=== PATIENT | male | born 1990 | race African-American/Black ===

== ENCOUNTER 2018-06-02 10:07 | Emergency (ER) | payer OTHER ==
[~2018-06-02] VITALS: Ht 188 cm; Wt 95.3 kg
[~2018-06-02 10:07] MED LIST: NKM
[2018-06-02] MEDS ORDERED: Ketorolac 30mg Inj IM ONE (10:45)
[2018-06-02] MEDS ORDERED: Methocarbamol 750mg tab ORAL ONE (10:45)
[2018-06-02 10:56] VITALS: BP 146/85
--- NOTE | 2018-06-02 11:54 | Diagnostic Imaging Report ---
EXAM: CT Head Without Intravenous Contrast CLINICAL HISTORY: H/A TECHNIQUE: Axial computed tomography images of the head/brain without intravenous contrast. CTDI is 70.38 mGy and DLP is 1403 mGy-cm. One or more of the following dose reduction techniques were used: automated exposure control, adjustment of the mA and/or kV according to patient size, use of iterative reconstruction technique. COMPARISON: No relevant prior studies available. FINDINGS: Brain: Unremarkable. No hemorrhage. No significant white matter disease. No edema. Ventricles: Unremarkable. No ventriculomegaly. Bones/joints: Unremarkable. No acute fracture. Soft tissues: Unremarkable. Sinuses: Small mucous retention cyst in the left maxillary sinus. Mastoid air cells: Unremarkable as visualized. No mastoid effusion. IMPRESSION: No acute findings.
[2018-06-02] MEDS ORDERED: IBUPROFEN600 MG ORAL (12:23)
[2018-06-02] MEDS ORDERED: ROBAXIN-750750 MG PO (12:23)
[2018-06-02 12:27] VITALS: BP 138/82
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
== END 2018-06-02 12:29 | disposition home or self-care (01) ==
LOC: EMR 10:30
DX: S09.90XA Unspecified injury of head, initial encounter (principal); V43.52XA Car driver injured in collision with other type car in traffic accident, initial encounter; Y92.410 Unspecified street and highway as the place of occurrence of the external cause
CPT/HCPCS: 70450; 99284; J1885